=== PATIENT | female | born 1950 | race Caucasian/White ===

== ENCOUNTER 2019-03-14 12:51 | Emergency (ER) | payer MEDICARE, OTHER ==
[~2019-03-14] VITALS: Ht 167.6 cm; Wt 90.0 kg
[2019-03-14 13:28] VITALS: BP 132/80
[2019-03-14] MEDS ORDERED: METH4TAB81 PO (13:38)
== END 2019-03-14 13:55 | disposition home or self-care (01) ==
LOC: ER 12:52
DX: J04.0 Acute laryngitis (principal); R05 Cough; Z87.891 Personal history of nicotine dependence; Z79.899 Other long term (current) drug therapy
CPT/HCPCS: 99283